=== PATIENT | female | born 1990 | race Two or more races ===

== ENCOUNTER 2025-03-08 03:08 | Emergency (ER) | payer SELFPAY ==
[2025-03-08 03:09] VITALS: BMI 37.0
--- NOTE | 2025-03-08 03:14 | EKG_ITS ---
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
[2025-03-08 03:26] VITALS: BP 151/94; PULSE 89; RESP 17; TEMP 37.2; O2SAT 98
--- NOTE | 2025-03-08 03:56 | XR_ITS ---
Examination: PA chest single view TECHNIQUE: Upright PA chest single view Date and time: March 08, 2025 0400 hours, comparison November 27, 2023 INDICATIONS: Chest pain today. FINDINGS: Normal heart size The lungs are clear. The osseous structures are intact IMPRESSION: No active disease
[2025-03-08] MEDS: DIAZEPAM 5 MG TABLET PO (04:34)
[2025-03-08 05:28] LABS: Alanine Aminotransferase 87 U/L (10-49); Albumin, Serum 4.7 gm/dL (3.5-5.0); Albumin/Globulin Ratio 1.6 (1.2-2.2); Alkaline Phosphatase 87 U/L (46-116); Anion Gap 10 (7-16); Aspartate Amino Transferase 44 U/L (0-34); BUN/Creatinine Ratio 13 Ratio (12-20); Bilirubin,Total 0.4 mg/dL (0.3-1.2); Blood Urea Nitrogen 9 mg/dL (9-23); Calcium 10.0 mg/dL (8.3-10.6); Calcium (Corrected) 10.0 mg/dL (8.5-10.1); Carbon Dioxide 24.4 mMol/L (20.0-31.0); Chloride 103 mMol/L (98-107); Creatinine (Component) 0.7 mg/dL (0.6-1.3); Estimated Creatinine Clearance 110.4 mL/min (>60); Globulin 3.0 gm/dL (2.3-3.5); Glucose 171 mg/dL (74-106); Osmolality,Calculated 276 (275-295); Potassium 3.9 mMol/L (3.4-5.1); Sodium 137 mMol/L (136-145); Total Protein 7.7 gm/dL (5.7-8.2); Troponin I < 0.002 ng/mL (0.0-0.045); eGFR > 60 See Note
[2025-03-08 05:32] LABS: D-Dimer < 250 ng/mL (<600)
[2025-03-08 05:34] LABS: Basophils # (Auto) 0.1 Thou/mm3 (0.0-0.2); Basophils % (Auto) 1 % (0-2.5); Eosinophils # (Auto) 0.3 Thou/mm3 (0.0-0.5); Eosinophils % (Auto) 3 % (0-10); Hematocrit 35.4 % (36.0-46.0); Hemoglobin 12.1 g/dL (12.0-16.0); Immature Granulocytes Auto 0.02 Thou/mm3 (0.00-0.00); Lymphocytes # (Auto) 2.6 Thou/mm3 (1.0-4.8); Lymphocytes % (Auto) 27 % (10-50); Mean Corpuscular HGB Conc 34.2 g/dl (31.0-37.0); Mean Corpuscular Hemoglobin 30.5 pg (25.0-35.0); Mean Corpuscular Volume 89 fL (80-100); Monocytes # (Auto) 0.5 Thou/mm3 (0.0-0.8); Monocytes % (Auto) 5 % (0-12); Neutrophils # (Auto) 6.2 Thou/mm3 (1.8-7.7); Neutrophils % (Auto) 64 % (37-80); Nucleated Red Blood Cell # 0.00 Thou/mm3 (0.00-0.00); Nucleated Red Blood Cell % 0 /100 WBC (0); Platelet Count 383 Thou/mm3 (140-440); RDW Standard Deviation 41.1 fL (36.4-46.3); Red Blood Count 3.97 Miln/mm3 (4.00-5.20); White Blood Count 9.7 Thou/mm3 (3.6-11.0)
--- NOTE | 2025-03-08 05:38 | PD.EDRME ---
Rapid Medical Screening Exam [facility] Arrival date/time: 03/08/25 03:08 34F with no significant PMH presents to ED with 2 hours of sudden chest pain that radiates to L arm. No improvement with Valium. Patient denies URI symptoms, alcohol/drug use, and SOB. Chief Complaint: Chest Pain Time Seen by Provider: 03/08/25 03:55 Vital signs: Vital Signs Temperature 98.9 F 03/08/25 03:26 Pulse Rate 89 03/08/25 03:26 Respiratory Rate 17 03/08/25 03:26 Blood Pressure 151/94 H 03/08/25 03:26 Pulse Oximetry (%) 98 03/08/25 03:26 Oxygen Delivery Method Room Air 03/08/25 03:26
[2025-03-08] MEDS: FAMOTIDINE 20 MG TABLET 40 MG PO (05:48)
[2025-03-08] MEDS: MG HYD/AL HYD/SIME (Maalox Reg) SUSP 30 ML UDC PO (05:48)
[2025-03-08 08:25] LABS: Troponin I < 0.002 ng/mL (0.0-0.045)
[2025-03-08 08:57] VITALS: BP 127/88; PULSE 77; RESP 18; TEMP 36.9; O2SAT 98
--- NOTE | 2025-03-08 09:04 | EDNOTE_ITS ---
ED Chest Pain RME/HPI General Chief Complaint: Chest Pain Stated Complaint: CHEST PAIN Time Seen by Provider: 03/08/25 03:55 Source: patient Arrival date/time: 03/08/25 03:08 34-year-old female with no known medical history presents to the emergency room with a chief complaint of sternal chest pain that radiates to her left arm causing numbness x 2 hours. Mode of arrival: ambulatory Limitations: no limitations RME / HPI RME / HPI narrative: 03/08/25 03:08 34F with no significant PMH presents to ED with 2 hours of sudden chest pain that radiates to L arm. No improvement with Valium. Patient denies URI symptoms, alcohol/drug use, and SOB. Related Data Previous Rx's ?Medication ?Instructions ?Recorded albuterol sulfate 90 mcg/actuation 2 puff inhalation Q ID PRN 08/20/21 aerosol inhaler shortness of breath or wheez ing #8.5 grams dicyclomine 20 mg tablet 20 mg PO BID #14 tabs ondansetron HCl 4 mg tablet 4 mg PO Q8H #14 tabs 02/09 hydrocodone 5 mg-acetaminophen 325 1 tab PO TID #20 ta bs 08/19/22 mg tablet azithromycin 250 mg tablet See Rx Instructions PO .COM PLEX #6 06/28/23 (Zithromax Z-Krzysztof) tabs ipratropium bromide 21 mcg (0.03 2 spray intranasal TI D PRN nasal 06/28/23 %) nasal spray congestion #30 mL prednisone 10 mg tablet See Rx Instructions .Route 1 08/29/22 .COMPLEX #21 tabs Allergies Allergy/AdvReac Type Severity Reaction Status Date / Time diphenhydramine (From Allergy Intermediate Rash Verified 03/08/25 03:13 Benadryl) Penicillins Allergy Intermediate Rash Verified 03/08/25 03:13 amoxicillin Allergy Rash Verified 03/08/25 03:13 Review of Systems Review of Systems Systems Reviewed: All systems reviewed, normal except as documented Constitutional Constitutional: Reports system reviewed and no additional complaints, except as documented, Denies fatigue, Denies fever(s), Denies headache(s) and Denies weakness Eyes Eyes: Reports system reviewed and no additional complaints, except as documented, Denies blurry vision and Denies change in vision ENT Ears, Nose, Mouth, and Throat: Reports system reviewed and no additional complaints, except as documented, Denies otalgia, Denies headache(s), Denies nasal congestion, Denies throat swelling and Denies vertigo Cardiovascular Cardiovascular: Reports system reviewed and no additional complaints, except as documented, Reports chest pain, Reports chest pain at rest, Reports chest pain with activity, Denies dyspnea and Denies dyspnea on exertion Respiratory Respiratory: Reports system reviewed and no additional complaints, except as documented, Denies chest congestion, Denies cough, Denies dyspnea, Denies dyspnea on exertion and Denies wheezing Gastrointestinal Gastrointestinal: Reports system reviewed and no additional complaints, except as documented, Denies abdominal pain, Denies cramping, Denies nausea and Denies vomiting Genitourinary Genitourinary: Reports system reviewed and no additional complaints, except as documented Musculoskeletal Musculoskeletal: Reports system reviewed and no additional complaints, except as documented and Denies back pain Integumentary/Breasts Skin/Breast: Reports system reviewed and no additional complaints, except as documented and Denies wounds Neurologic Neurologic: Reports system reviewed and no additional complaints, except as documented, Denies confusion, Denies headache(s), Denies lack of coordination, Denies vertigo and Denies weakness Psychiatric Psychiatric: Reports system reviewed and no additional complaints, except as documented, Denies anxiety, Denies confusion, Denies depression, Denies paranoia, Denies suicidal ideation and Denies tactile hallucinations Endocrine Endocrine: Reports system reviewed and no additional complaints, except as documented and Denies fatigue Hematologic/Lymphatic Hematologic/Lymphatic: Reports system reviewed and no additional complaints, except as documented and Denies lymphadenopathy Allergic/Immunologic Allergic/Immunologic: Reports system reviewed and no additional complaints, except as documented, Denies throat swelling, Denies urticaria and Denies wheezing Past Medical History Past Medical History CARDIAC: Negative Congestive Heart Failure RESPIRATORY: Negative Chronic Obstructive Pulmonary Disease (COPD) GENITOURINARY: Negative Renal Disease ENDOCRINE: Negative Diabetes Mellitus Type 1 or Diabetes Mellitus Type 2 Social History SMOKING STATUS: Never smoker ED Exam General Limitations: Present no limitations General appearance: Present alert and in no apparent distress Head Head exam: Present atraumatic Eye Eye exam: Present normal appearance, PERRL and EOMI ENT ENT exam: Present normal exam, normal oropharynx and mucous membranes moist Neck Neck exam: Present normal inspection, full ROM and trachea midline Chest Chest inspection: Present normal inspection and symmetric chest wall rise Respiratory Respiratory exam: Present normal lung sounds bilaterally Cardiovascular Cardiovascular exam: Present regular rate, normal rhythm, normal heart sounds, +S1 and +S2; Absent bradycardia, tachycardia, irregular rhythm, systolic murmur, diastolic murmur, rubs, gallop, clicks or JVD Abdominal Exam Abdominal exam: Present soft and normal bowel sounds Extremities Exam Extremities exam: Present normal inspection and full ROM Back Exam Back exam: Present normal inspection and full ROM Neurological Exam Neurological exam: Present alert, oriented X3 and CN II-XII intact Psychiatric Psychiatric exam: Present normal affect and normal mood Skin Skin exam: Present warm, dry, intact and normal color Course Quality Measures none Orders Category Date Time Status EKG (ED ONLY) *Do not use* NOW Care 03/08/25 03:14 Completed EKG (ED Only) Stat Exams 03/08/25 03:14 Draft XR chest 1V portable Stat Exams 03/08/25 03:56 Completed CBC Stat Lab 03/08/25 05:05 Completed Comprehensive Metabolic Panel Stat Lab 03/08/25 05:05 Completed D-Dimer Stat Lab 03/08/25 05:05 Completed Troponin I Stat Lab 03/08/25 05:05 Completed Troponin I Stat Lab 03/08/25 07:58 Completed Aspirin Med 03/08/25 05:38 Discontinued 325 mg PO X1 ONE Diazepam [Valium] Med 03/08/25 03:56 Discontinued 5 mg PO X1 ONE Famotidine [Pepcid] Med 03/08/25 05:38 Discontinued 40 mg PO X1 ONE mg Hyd/Al Hyd/Malathi Susp [Maalox Susp] Med 03/08/25 05:38 Discontinued 30 ml PO X1 ONE Vital Signs Vital signs: Vital Signs Temperature 98.9 F 03/08/25 03:26 Pulse Rate 89 03/08/25 03:26 Respiratory Rate 17 03/08/25 03:26 Blood Pressure 151/94 H 03/08/25 03:26 Pulse Oximetry (%) 98 03/08/25 03:26 Oxygen Delivery Method Room Air 03/08/25 03:26 PROCEDURES: EKG Interpretation #1: Date of EK03/08/25 Rate: 88 Interpretation: Reviewed by me Chest Pain MDM Narrative MDM Narrative:: 34-year-old female with no known medical history presents to the emergency room with a chief complaint of sternal chest pain that radiates to her left arm causing numbness x 2 hours. Patient is hemodynamically stable and in no apparent distress. She is not tachycardic not tachypneic afebrile Physical examination shows clear bilateral lung sounds there is no wheezing stridor or any abnormal breath sounds. The patient has a strong and regular rhythm S1 and S2 noted there are no murmurs no clicks and no JVD The patient's EKG shows normal sinus rhythm at [address] deviation. Chest x-ray was negative for any pneumonic infiltrates. CBC CMP were all within normal limits. Troponin was negative, delta Trope was also negative. Patient was discharged and educated to follow-up with primary care provider in the next 24 to 48 hours and return to the emergency room for any evidence of worsening signs or symptoms Patient data External records reviewed:: [facility] previous records Clinical information provided by:: patient Social determinants that could affect healthcare access:: none Patient has the following chronic illnesses:: No chronic illness How is presenting disease/condition affected by chronic disease/condition?: no chronic disease Evaluation data The following diagnostics were reviewed and interpreted by me:: lab results and radiology exam(s) Lab and/or radiology exams considered but not ordered:: Labs and radiology exams considered and ordered Interpretation Summary: Chest [id number]: Normal heart size The lungs are clear. The osseous structures are intact IMPRESSION: No active disease Medications / Prescriptions Medications or Prescriptions considered but not ordered:: Medication given Medication administrations:: Medication Administration History Discontinued Medications Al Hydrox/Mg Hydrox/Simethicone (Mg Hyd/Al Hyd/Malathi (Maalox Reg) Susp 30 Ml Udc) 30 ml PO X1 ONE Stop: 03/08/25 05:39 Last Admin: 03/08/25 05:48 Dose: 30 ml Documented By: FRANKI Aspirin (Aspirin 325 Mg Tablet) 325 mg PO X1 ONE Stop: 03/08/25 05:39 Last Admin: 03/08/25 05:48 Dose: 325 mg Documented By: FRANKI Diazepam (Diazepam 5 Mg Tablet) 5 mg PO X1 ONE Stop: 03/08/25 03:57 Last Admin: 03/08/25 04:34 Dose: 5 mg Documented By: JAC Famotidine (Famotidine 20 Mg Tablet) 40 mg PO X1 ONE Stop: 03/08/25 05:39 Last Admin: 03/08/25 05:48 Dose: 40 mg Documented By: DT Medication given Consultations Consultation(s) initiated? (list below): No Diagnosis Chest Pain Differential Diagnosis: stable angina, atypical chest pain, st elevation myocardial infarction, costochondritis and chest pain Most likely diagnosis given after review of the tests above:: Chest pain Admission Indicated Admission indicated?: not indicated Admission Request Was there a request for admission?: No Disposition Plan Disposition Plan: Discharge Discharge Attestation Discharge Attestation: The patient and all family members were given an opportunity to ask questions and understood the discharge instructions. Discharge instructions specifically effects, indications for sooner follow up or return to the emergency department, and the expected course of current diagnosis. Patient condition: Stable Discharge Plan Plan Patient Disposition: HOME (Self Care) Discharge Disposition comment: Stable Prescriptions/Referrals Prescriptions/Med Rec: No Action albuterol sulfate 90 mcg/actuation HFA aerosol inhaler 2 puff inhalation QID PRN (Reason: shortness of breath or wheezing) Qty: 8.5 0RF dicyclomine 20 mg tablet 20 mg PO BID Qty: 14 0RF ondansetron HCl 4 mg tablet 4 mg PO Q8H Qty: 14 0RF prednisone 10 mg tablet See Rx Instructions .ROUTE .COMPLEX Qty: 21 0RF Taper: Prednisone Taper 60 mg DAILY for 1 Day 50 mg DAILY for 1 Day 40 mg DAILY for 1 Day 30 mg DAILY for 1 Day 20 mg DAILY for 1 Day 10 mg DAILY for 1 Day Rx Instructions: Day 1: 6 tabs PO QAM, Day 2: 5 tabs PO QAM, Day 3: 4 tabs PO QAM, Day 4: 3 tabs PO QAM, Day 5: 2 tabs PO QAM, Day 6: 1 tab PO QAM ipratropium bromide 21 mcg (0.03 %) spray,non-aerosol 2 spray intranasal TID PRN (Reason: nasal congestion) Qty: 30 0RF Rx Instructions: 2 sprays each nostril up to 3 times a day prn nasal congestion azithromycin [Zithromax Z-Krzysztof] 250 mg tablet See Rx Instructions .ROUTE .COMPLEX Qty: 6 0RF Rx Instructions: For 250 mg dose pack: take 500 mg today (day 1), then 250 mg for 4 days (days 2-5) hydrocodone-acetaminophen 5-325 mg tablet 1 tab PO TID MDD 3 Qty: 20 0RF Referrals: Jp Ledezma MD [Primary Care Provider] - In 1 week Problem List Clinical Impression: Chest pain Patient/Caregiver Discharge Instructions Education Materials: ED Chest Pain, Noncardiac Additional Instructions: Please follow-up with your primary care provider in the next 24 to 48 hours Your cardiac examination was within normal limits. Your EKG was within normal limits blood work and urinalysis were all within normal limits For any evidence of worsening signs or symptoms return to the emergency room immediately Print Language: Arabic Stand Alone Forms: Josy Award Info., Work/School Release, Patient Portal Info Letter PA/INSULATION MACHINE OPERATOR Supervising Physician PA/INSULATION MACHINE OPERATOR Supervising Physician: Dr. Brown
== END 2025-03-08 09:06 | disposition home or self-care (01) ==
PROVIDERS: Physician Assistant; Emergency Provider Family Medicine; PCP Family Medicine
DX: R07.2 Precordial pain (principal); R20.0 Anesthesia of skin
CPT/HCPCS: 36415; 71045; 80053; 84484; 85025; 85379; 93005; 99283; A9270